=== PATIENT | male | born 1950 | race Caucasian/White ===

== ENCOUNTER → 2018-03-26 | Outpatient (CLI) | payer MEDICARE ==
[~2018-03-26] MED LIST: APIX5TAB PO; CYAN100010 PO; DILTIAZEM PO; FENO145T37 PO; FURO40TA5 PO; INHALER PRN IH; IRON18TA PO; METO-408 PO; PANT40TA25 PO; PRAV20TA4 PO; TERB250T51 PO
== END | disposition home or self-care (01) ==
LOC: RAH 09:29
PROVIDERS: ATTEND Internal Medicine
DX: I08.0 Rheumatic disorders of both mitral and aortic valves (principal); R06.02 Shortness of breath
CPT/HCPCS: 93306

== ENCOUNTER → 2019-03-25 | Outpatient (CLI) | payer MEDICARE ==
[~2019-03-25] MED LIST changes: +FENO145T26 PO; -FENO145T37 PO
== END | disposition home or self-care (01) ==
LOC: RAH 11:23
PROVIDERS: ATTEND Internal Medicine
DX: J90 Pleural effusion, not elsewhere classified (principal); J44.9 Chronic obstructive pulmonary disease, unspecified
CPT/HCPCS: 71046

== ENCOUNTER 2020-04-07 09:26 | Inpatient (IN) | payer MEDICARE, OTHER ==
[~2020-04-07 09:26] MED LIST changes: -PANT40TA25 PO; +PANT40TA54 PO; -TERB250T51 PO; +TERB250T89 PO
[2020-04-07 10:15] LABS: BASOPHILS % (AUTO) 0.2 % (0.0-5.0); EOSINOPHILS % (AUTO) 0.1 % (0.0-8.0); HEMATOCRIT 34.6 % (42-54); LYMPHOCYTES % (AUTO) 2.5 % (21.0-51.0); MEAN CORPUSCULAR HEMOGLOBIN 32.7 pg (27.0-33.0); MEAN CORPUSCULAR HGB CONC 33.5 g/dL (32.0-36.0); MEAN CORPUSCULAR VOLUME 97.5 fL (79-99); NEUTROPHILS % (AUTO) 84.7 % (40.0-77.0); PLATELET COUNT (AUTO) 102 K/uL (130-400); RED BLOOD CELL COUNT(AUTO) 3.55 MIL/uL (4.50-6.20); RED CELL DISTRIBUTION WIDTH 15.3 % (11.0-15.5); WHITE BLOOD COUNT (AUTO) 14.2 K/uL (4.8-10.8)
[2020-04-07 10:25] LABS: BILIRUBIN,URINE Negative (NEGATIVE); COLOR,URINE Dark Yellow (YELLOW); GLUCOSE, URINE (UA) Negative (NEGATIVE); KETONES,URINE Trace mg/dL (NEGATIVE); LEUKOCYTE ESTERASE ,URINE Moderate (NEGATIVE); NITRATE,URINE Negative (NEGATIVE); OCCULT BLOOD,URINE Nonhemolyzed Trace (NEGATIVE); PROTEIN,URINE Negative (NEGATIVE)
[2020-04-07 10:27] LABS: APPEARANCE,URINE SLIGHTLY CLOUDY (CLEAR)
[2020-04-07 10:27] LABS: CREATININE 2.1 mg/dL (0.5-1.5); POTASSIUM 4.2 mmol/L (3.5-5.1)
[2020-04-07 10:31] LABS: BILIRUBIN,TOTAL 1.6 mg/dL (0.2-1.0); TOTAL PROTEIN, SERUM 7.1 g/dL (6.0-8.3)
[2020-04-07 10:33] LABS: RBC,URINE 0-1 /HPF (0-1)
[2020-04-07 10:34] LABS: BACTERIA,URINE Rare /HPF (None Seen); SQUAMOUS EPITHELIAL CELL,UR None Seen /HPF (0-2)
[2020-04-07] MEDS ORDERED: CEFTRIAXONE 1G VIAL ONE (12:42)
[2020-04-07] MEDS ORDERED: FURO40TA5 PO (13:32)
[2020-04-07] MEDS ORDERED: AEC81 PO (13:32)
[2020-04-07] MEDS ORDERED: LISI5TAB21 PO (13:32)
[2020-04-07] MEDS ORDERED: FERS325 PO (13:32)
[2020-04-07] MEDS ORDERED: ALBU2.5V2 IH (13:32)
[2020-04-07] MEDS ORDERED: DONE10TA43 PO (13:32)
[2020-04-07] MEDS ORDERED: THIA500T3 PO (13:32)
[2020-04-07] MEDS ORDERED: FAMO20TA8 PO (13:32)
[2020-04-07] MEDS ORDERED: FLUT1BLS3 IH (13:32)
[2020-04-07] MEDS ORDERED: ALBU18HF7 IH (13:32)
[2020-04-07] MEDS ORDERED: DILT120C92 PO (13:32)
[2020-04-07] MEDS ORDERED: LACTULOSE 20 GM/30 ML UDCUP PO PRN (14:00)
[2020-04-07] MEDS ORDERED: ACETAMINOPHEN 325 MG TAB PO PRN (14:00)
[2020-04-07] MEDS ORDERED: DiphenhydrAMINE HCL 50 MG/ML VIAL IV PRN (14:00)
[2020-04-07] MEDS ORDERED: ONDANSETRON 4MG INJ IV PRN (14:00)
[2020-04-07] MEDS ORDERED: 0.9%NACL 1000ML 1,000 ML IV SCH (14:00)
[2020-04-07] MEDS ORDERED: MAG/ALUM/SIMETH 30 ML UDCUP PO PRN (14:00)
[2020-04-07] MEDS ORDERED: DIPHENHYDRAMINE HCL 25 MG CAPSULE PO PRN (14:00)
[2020-04-07] MEDS ORDERED: POTASSIUM CHLORIDE 10% ELIXIR 20 MEQ/15 ML UDCUP PO PRN (14:15)
[2020-04-07] MEDS ORDERED: LIDOCAINE HCL-MPF 1% 2ML VIAL IV PRN (14:15)
[2020-04-07] MEDS ORDERED: FAMOTIDINE 20MG TAB PO PRN (14:15)
[2020-04-07] MEDS ORDERED: KCL 20 MEQ ERTAB PO PRN (14:15)
[2020-04-07] MEDS ORDERED: POTASSIUM CHLORIDE 20MEQ/100ML 100 ML IV PRN (14:15)
[2020-04-07] MEDS: CEFTRIAXONE 1G VIAL IVP SCH (14:30)
[2020-04-07] MEDS: DILTIAZEM 120MG SR CAP PO SCH (14:32)
[2020-04-07] MEDS ORDERED: 0.9%NACL 1000ML 1,000 ML IV ONE (14:34)
[2020-04-07] MEDS: DONEPEZIL HCL 5 MG TAB PO SCH (14:37)
[2020-04-07] MEDS: FERROUS SULFATE 325 MG TABLET.DR PO SCH (14:39)
[2020-04-07] MEDS: THIAMINE HCL 100 MG TABLET PO SCH (14:50)
[2020-04-07] MEDS ORDERED: ACETAMINOPHEN 650 MG/20.3 ML UDCUP ONE (15:01)
[2020-04-07] MEDS ORDERED: FAMOTIDINE 20MG TAB ONE (19:27)
[2020-04-07] MEDS ORDERED: METOPROLOL SUCCINATE 50 MG TAB.SR.24H PO ONE (19:28)
[2020-04-08 06:56] LABS: HEMATOCRIT 34.3 % (42-54); MEAN CORPUSCULAR HGB CONC 33.2 g/dL (32.0-36.0); MEAN CORPUSCULAR VOLUME 99.4 fL (79-99); RED BLOOD CELL COUNT(AUTO) 3.45 MIL/uL (4.50-6.20); RED CELL DISTRIBUTION WIDTH 15.9 % (11.0-15.5); WHITE BLOOD COUNT (AUTO) 13.7 K/uL (4.8-10.8)
[2020-04-08 07:08] LABS: CREATININE 1.7 mg/dL (0.5-1.5); POTASSIUM 4.1 mmol/L (3.5-5.1)
[2020-04-08] MEDS ORDERED: ASPIRIN 81MG CHEW TAB ONE (08:10)
[2020-04-08] MEDS ORDERED: FERROUS SULFATE 325 MG TABLET.DR ONE (08:11)
[2020-04-08] MEDS ORDERED: THIAMINE HCL 100 MG TABLET ONE (08:11)
[2020-04-08] MEDS ORDERED: SIMVASTATIN 10 MG TABLET ONE (08:11)
[2020-04-08] MEDS ORDERED: DILTIAZEM 60MG TAB ONE (08:11)
[2020-04-08] MEDS ORDERED: CYANOCOBALAMIN (VITAMIN B-12) 1,000 MCG TABLET ONE (08:12)
[2020-04-08] MEDS ORDERED: DONEPEZIL HCL 5 MG TAB ONE (08:12)
[2020-04-08] MEDS ORDERED: CEPH500C2 PO (08:26)
[2020-04-08] MEDS: FERROUS SULFATE 325 MG TABLET.DR PO SCH (09:00)
[2020-04-08] MEDS: DONEPEZIL HCL 5 MG TAB PO SCH (09:00)
[2020-04-08] MEDS: DILTIAZEM 120MG SR CAP PO SCH (09:00)
[2020-04-08] MEDS: CYANOCOBALAMIN (VITAMIN B-12) 1,000 MCG TABLET PO SCH (09:00)
[2020-04-08] MEDS: ASPIRIN 81 MG EC TAB PO SCH (09:00)
[2020-04-08] MEDS: THIAMINE HCL 100 MG TABLET PO SCH (09:00)
[2020-04-08] MEDS: SIMVASTATIN 20 MG TABLET PO SCH (09:00)
[2020-04-08] MEDS ORDERED: CEFTRIAXONE 1G VIAL ONE (13:58)
[2020-04-08] MEDS ORDERED: PREDNISONE 20 MG TABLET PO SCH (14:00)
[2020-04-08] MEDS ORDERED: PRED10TA3 PO (14:25)
[2020-04-08] MEDS: CEFTRIAXONE 1G VIAL IVP SCH (14:30)
[2020-04-08] MEDS ORDERED: PREDNISONE 20 MG TABLET ONE (15:33)
[2020-04-08 18:18] VITALS: BP 131/63
[2020-04-08 20:02] VITALS: BP 123/67
[2020-04-08] MEDS: METOPROLOL SUCCINATE 50 MG TAB.SR.24H PO SCH (20:25)
[2020-04-08] MEDS: FENOFIBRATE NANOCRYSTALLIZED 145 MG TAB PO SCH (20:30)
[2020-04-08 23:41] VITALS: BP 120/64
[2020-04-09 03:31] VITALS: BP 117/67
[2020-04-09 06:02] LABS: HEMATOCRIT 33.2 % (42-54); MEAN CORPUSCULAR HEMOGLOBIN 32.6 pg (27.0-33.0); MEAN CORPUSCULAR HGB CONC 32.5 g/dL (32.0-36.0); MEAN CORPUSCULAR VOLUME 100.3 fL (79-99); RED BLOOD CELL COUNT(AUTO) 3.31 MIL/uL (4.50-6.20); RED CELL DISTRIBUTION WIDTH 15.9 % (11.0-15.5); WHITE BLOOD COUNT (AUTO) 10.8 K/uL (4.8-10.8)
[2020-04-09 06:22] LABS: CREATININE 1.5 mg/dL (0.5-1.5); POTASSIUM 4.2 mmol/L (3.5-5.1)
[2020-04-09 07:41] VITALS: BP 122/69
[2020-04-09] MEDS: PREDNISONE 20 MG TABLET PO SCH ×2 (07:58→10:21)
[2020-04-09] MEDS: FERROUS SULFATE 325 MG TABLET.DR PO SCH (10:17)
[2020-04-09] MEDS: ASPIRIN 81 MG EC TAB PO SCH (10:17)
[2020-04-09] MEDS: DONEPEZIL HCL 5 MG TAB PO SCH (10:19)
[2020-04-09] MEDS: DILTIAZEM 120MG SR CAP PO SCH (10:19)
[2020-04-09] MEDS: THIAMINE HCL 100 MG TABLET PO SCH (10:19)
[2020-04-09] MEDS: CEFTRIAXONE 1G VIAL IVP SCH ×3 (10:20→20:50)
[2020-04-09] MEDS: ACETAMINOPHEN 325 MG TAB PO PRN ×2 (10:20→20:47)
[2020-04-09] MEDS: SIMVASTATIN 20 MG TABLET PO SCH (10:20)
[2020-04-09] MEDS: CYANOCOBALAMIN (VITAMIN B-12) 1,000 MCG TABLET PO SCH (10:21)
[2020-04-09 11:11] VITALS: BP 106/64
[2020-04-09 15:56] VITALS: BP 108/56
[2020-04-09] MEDS ORDERED: CEFTRIAXONE 1G VIAL IVP SCH (20:00)
[2020-04-09] MEDS: METOPROLOL SUCCINATE 50 MG TAB.SR.24H PO SCH ×2 (20:47→20:54)
[2020-04-09] MEDS: FENOFIBRATE NANOCRYSTALLIZED 145 MG TAB PO SCH (20:54)
[2020-04-10] VITALS: BP 115/60
[2020-04-10] MEDS: ACETAMINOPHEN 325 MG TAB PO PRN ×3 (00:17→10:15)
[2020-04-10 04:00] VITALS: BP 118/85
[2020-04-10] MEDS: ASPIRIN 81 MG EC TAB PO SCH (08:50)
[2020-04-10] MEDS: SIMVASTATIN 20 MG TABLET PO SCH (08:50)
[2020-04-10] MEDS: DONEPEZIL HCL 5 MG TAB PO SCH (08:51)
[2020-04-10] MEDS: CYANOCOBALAMIN (VITAMIN B-12) 1,000 MCG TABLET PO SCH (08:51)
[2020-04-10] MEDS: DILTIAZEM 120MG SR CAP PO SCH (08:51)
[2020-04-10] MEDS: FERROUS SULFATE 325 MG TABLET.DR PO SCH (08:51)
[2020-04-10] MEDS: THIAMINE HCL 100 MG TABLET PO SCH (08:51)
[2020-04-10] MEDS: PREDNISONE 20 MG TABLET PO SCH (08:51)
[2020-04-10] MEDS ORDERED: FURO-152 PO (09:54)
[2020-04-10] MEDS ORDERED: LISI2.5T13 PO (09:54)
[2020-04-10 09:59] LABS: HEMATOCRIT 34.8 % (42-54); MEAN CORPUSCULAR HEMOGLOBIN 32.4 pg (27.0-33.0); MEAN CORPUSCULAR HGB CONC 32.8 g/dL (32.0-36.0); MEAN CORPUSCULAR VOLUME 98.9 fL (79-99); RED BLOOD CELL COUNT(AUTO) 3.52 MIL/uL (4.50-6.20); RED CELL DISTRIBUTION WIDTH 15.7 % (11.0-15.5); WHITE BLOOD COUNT (AUTO) 9.8 K/uL (4.8-10.8)
[2020-04-10 10:16] LABS: CREATININE 1.3 mg/dL (0.5-1.5); POTASSIUM 3.7 mmol/L (3.5-5.1)
[2020-04-10 12:00] VITALS: BP 122/62
[2020-04-10] MEDS ORDERED: TRAMADOL HCL 50 MG TABLET PO PRN (12:00)
[2020-04-10] MEDS ORDERED: TRAM50TA4 PO (12:04)
[2020-04-10] MEDS ORDERED: AUD IH (14:21)
[2020-04-10 16:00] VITALS: BP 132/54
[2020-04-10] MEDS ORDERED: ALBUTEROL 0.083% 2.5 MG/3 ML INH IH SCH (18:00)
== END 2020-04-10 17:33 | DRG 683 ==
LOC: EDH 09:26 → EDHIP 13:54 → OBSVTOIN 13:54 → 3DH 04-08 17:52 → 3BH 04-09 07:46
PROVIDERS: ADMIT Internal Medicine; ATTEND Internal Medicine
DX: N17.9 Acute kidney failure, unspecified (principal); N39.0 Urinary tract infection, site not specified; I13.0 Hypertensive heart and chronic kidney disease with heart failure and stage 1 through stage 4 chronic kidney disease, or unspecified chronic kidney disease; I42.0 Dilated cardiomyopathy; K76.6 Portal hypertension; F01.51 Vascular dementia, unspecified severity, with behavioral disturbance; R78.81 Bacteremia; J44.1 Chronic obstructive pulmonary disease with (acute) exacerbation; I50.30 Unspecified diastolic (congestive) heart failure; S80.01XA Contusion of right knee, initial encounter; W19.XXXA Unspecified fall, initial encounter; M19.90 Unspecified osteoarthritis, unspecified site; M10.9 Gout, unspecified; R16.1 Splenomegaly, not elsewhere classified; Z96.653 Presence of artificial knee joint, bilateral; J84.10 Pulmonary fibrosis, unspecified; K21.9 Gastro-esophageal reflux disease without esophagitis; K43.9 Ventral hernia without obstruction or gangrene; K74.60 Unspecified cirrhosis of liver; I77.819 Aortic ectasia, unspecified site; I70.0 Atherosclerosis of aorta; I48.91 Unspecified atrial fibrillation; I08.0 Rheumatic disorders of both mitral and aortic valves; H91.90 Unspecified hearing loss, unspecified ear; E88.81 Metabolic syndrome and other insulin resistance; E86.0 Dehydration; E66.9 Obesity, unspecified; D69.6 Thrombocytopenia, unspecified; B95.8 Unspecified staphylococcus as the cause of diseases classified elsewhere; R77.8 Other specified abnormalities of plasma proteins; N18.30 Chronic kidney disease, stage 3 unspecified; E78.2 Mixed hyperlipidemia; W18.30XA Fall on same level, unspecified, initial encounter; Z87.891 Personal history of nicotine dependence; Z82.49 Family history of ischemic heart disease and other diseases of the circulatory system; Z79.899 Other long term (current) drug therapy; Z79.82 Long term (current) use of aspirin; Z79.01 Long term (current) use of anticoagulants; Z68.30 Body mass index [BMI] 30.0-30.9, adult; Y92.009 Unspecified place in unspecified non-institutional (private) residence as the place of occurrence of the external cause; Y93.89 Activity, other specified; Y99.8 Other external cause status; Z71.41 Alcohol abuse counseling and surveillance of alcoholic
CPT/HCPCS: 36415; 71045; 73562; 80048; 80053; 81001; 84484; 85025; 85027; 87040; 87077; 87088; 87186; 93005; 94664; 97039; G0378; J0696; J7030